=== PATIENT | male | born 1980 | race Caucasian/White ===

== ENCOUNTER → 2017-07-21 | Outpatient (CLI) | payer OTHER ==
--- NOTE | 2017-07-22 14:22 | RAD ---
EXAM DESCRIPTION: Toes,Right CLINICAL HISTORY: 37 years Male, PAIN IN RIGHT TOES COMPARISON: None. FINDINGS: Three views of the right toes demonstrate a minimally displaced fracture at the medial base of the great toe distal phalanx. Alignment is essentially anatomic. Proximal phalanx is intact and additional toe fractures are not evident. IMPRESSION: Fracture of the medial base distal phalanx of the great toe. Electronically signed by: Michael Ernst MD 07/22/2017 2:21 PM [facility]
== END ==
LOC: RAD 09:57
PROVIDERS: ATTEND Nurse Practitioner Family
DX: S92.424A Nondisplaced fracture of distal phalanx of right great toe, initial encounter for closed fracture (principal)

== ENCOUNTER 2017-09-27 16:05 | Emergency (ER) | payer OTHER ==
[2017-09-27 17:05] VITALS: BP 130/76
[2017-09-27] MEDS ORDERED: POVIDONE IODINE 10 % 15 ML UD TOP ONE (17:28)
--- NOTE | 2017-09-27 18:21 | ED.PDOC ---
History of Present Illness - General Chief Complaint: Laceration Stated Complaint: Laceration to L index finger Time Seen by Provider: 09/27/17 18:15 Source: patient Exam Limitations: no limitations - History of Present Illness Initial Comments: Patient cut his finger on a kitchen knife. He comes in to ER because it will not stop bleeding. No change in sensation and no prior injury. Timing/Duration: 1 hour Severity: mild Improving Factors: nothing Worsening Factors: movement Associated Symptoms: denies symptoms Allergies/Adverse Reactions: Allergies NO KNOWN ALLERGY Allergy (Verified 09/27/17 17:05) Home Medications: Ambulatory Orders NK [NK] 09/27/17 Review of Systems - Review of Systems Constitutional: States: no symptoms reported EENTM: States: no symptoms reported Respiratory: States: no symptoms reported Cardiology: States: no symptoms reported Gastrointestinal/Abdominal: States: no symptoms reported Past Medical History (General) - Patient Medical History Hx Seizures: No Hx Stroke: No Hx Asthma: No Hx of COPD: No Hx Cardiac Disorders: No Hx Congestive Heart Failure: No Hx Pacemaker: No Hx Thyroid Disease: No Hx Diabetes: No Hx Gastroesophageal Reflux: No Surgical History: no surgical history - Vaccination History Hx Tetanus, Diphtheria Vaccination: Yes - 2018 Hx Influenza Vaccination: No Hx Pneumococcal Vaccination: No - Social History Hx Tobacco Use: No Family Medical History - Family History Mother Family History: No Known Living Status: Still Living Physical Exam - Physical Exam General Appearance: Alert, Comfortable Respiratory: chest non-tender, lungs clear, normal breath sounds Cardiovascular/Chest: normal peripheral pulses, regular rate, rhythm, no edema, no murmur Gastrointestinal/Abdominal: normal bowel sounds, non tender Extremity: other - index finger with small .5 cm laceratio to the finger pad. Neurologic: no motor/sensory deficits Procedures - Laceration/Wound Repair Left Finger Wound's Depth, Shape: superficial Wound Explored: clean Betadine Prep?: Yes Wound Repaired With: dermabond - after cleaning and pressure the bleeding stopped and exam of the wound showed superficial laceration. As it had been bleeding for >1 hour Dermabond was placed over the area to help the wound seal He was instructed may flake off quickly because of placent on the hand. Departure - Departure Clinical Impression: Laceration Disposition: Discharge to Home or Self Care Departure Forms: ED Discharge - Pt. Copy, Patient Portal Self Enrollment Instructions: DI for Laceration Repair, DI for Laceration Repair With Dermabond Diet: resume usual diet Referrals: CHRISTOPHER STEWART IV, [employer] [Primary Care Provider] - 1-2 Weeks Home Medications: Ambulatory Orders NK [NK] 09/27/17 Additional Instructions: Wash area with warm soapy water daily and pat dry. Return to ER for increased bleeding, pain, redness, or swelling. Td was up to date.
[2017-09-27 19:10] VITALS: TEMP 98.5; O2SAT 97
== END 2017-09-27 18:30 | disposition home or self-care (01) ==
LOC: ER 16:05
DX: S61.211A Laceration without foreign body of left index finger without damage to nail, initial encounter (principal); W26.0XXA Contact with knife, initial encounter; Y92.9 Unspecified place or not applicable